=== PATIENT | female | born 1950 | race Caucasian/White ===

== ENCOUNTER 2019-11-06 21:18 | Emergency (ER) | payer MEDICARE, SELFPAY ==
[2019-11-06 21:20] VITALS: BP 203/86; PULSE 98; RESP 18; TEMP 36.9; O2SAT 95; BMI 35.4
--- NOTE | 2019-11-06 21:29 | ED_ITS ---
HPI - Extremity Problem General: Chief complaint: Extremity Injury, Lower Stated complaint: left foot injury Time Seen by Provider: 11/06/19 21:23 History of Present Illness: HPI Narrative: Patient states couple hours ago that that she woke on her porch and got a splinter left foot and she cannot remove the splinter. Complaint: other (On her left foot) Onset (ago): hour(s) Pain Consistency: constant Location: left Severity scale (1-10): 3 Quality: aching Associated symptoms: Deny chest pain, fever(s) or rash Review of Systems Const: Denies: fever, chills or body aches Eyes: Denies: change in vision or blurry vision ENMT: Denies: throat pain or nasal congestion Card: Denies: chest pain or shortness of breath on exertion Resp: Denies: shortness of breath, productive cough or non-productive cough GI: Denies: abdominal pain, nausea or vomiting Musc: Denies: extremity pain Skin/Breast: Reports: other (Splinter left foot); Denies: rash Neuro: Denies: headache Psych: Denies: anxiety or depression Andreas/Lymph: Denies: easy bruising PFS ED PFSH: Social History Smoking and tobacco status: never smoked Physical Exam Const: COMMON NORMALS: no apparent distress Skin: OTHER: Obvious splinter in the base left foot up near the toe Procedures Foreign Body Removal Time Out Performed: no Site: left and foot Description of foreign body: other (Splinter) Sedation/Analgesia: other (Use lidocaine 1% to the wound area remove this splinter intact) Technique: manual removal and removal with forceps Confirmed by:: direct visualization Complications: none Course Vital Signs: Vital signs: Vital Signs Temperature 98.4 F 11/06/19 21:20 Pulse Rate 98 11/06/19 21:20 Respiratory Rate 18 11/06/19 21:20 Blood Pressure 203/86 11/06/19 21:20 Pulse Oximetry 95 11/06/19 21:20 Discharge Plan Discharge Prescriptions: No Action Unable to Assess RF: 0 Coding Level of Care Code ED Director Of Field Coordination for [place] Fwd Exam Problem Focused
[2019-11-06 21:42] VITALS: PULSE 86; RESP 18; O2SAT 98
[2019-11-06] MEDS: lidocaine 1% INJ 20 mL INTRADERMA (21:45)
[2019-11-06] MEDS: tetanus-dipt-pertussis 0.5 mL SDV IM (21:46)
[2019-11-06] MEDS: cephALEXin 500 mg Capsule PO (21:55)
[2019-11-06 22:00] VITALS: BP 177/100; PULSE 81; RESP 18; O2SAT 97
== END 2019-11-06 22:00 | disposition home or self-care (01) ==
LOC: ER 22:05
PROVIDERS: Emergency Provider Nurse Practitioner Family; Family Provider Family Medicine
DX: S90.852A Superficial foreign body, left foot, initial encounter (principal); W45.8XXA Other foreign body or object entering through skin, initial encounter; Z23 Encounter for immunization
CPT/HCPCS: 12345; 90471; 90715; 99281; 99283; J2001

== ENCOUNTER → 2020-02-05 09:24 | Outpatient (BNVA) | payer MEDICARE, SELFPAY | PROVIDERS: Family Provider Family Medicine; PCP Family Medicine; Visit Provider Family Medicine | DX: I10 Essential (primary) hypertension (principal); R92.8 Other abnormal and inconclusive findings on diagnostic imaging of breast | CPT/HCPCS: 36415; 80053; 80061; 85025 ==

== ENCOUNTER 2020-04-16 14:37 | Emergency (ER) | payer MEDICARE, SELFPAY ==
[2020-04-16] VITALS (10 sets, daily range): BP systolic 150–180; BP diastolic 62–106; PULSE 78–96; RESP 16–18; TEMP 36.4; O2SAT 97–100; BMI 34.0
--- NOTE | 2020-04-16 15:07 | ED_ITS ---
Documented by User: Ji Machado DO 04/21/20 15:51 HPI - Abdominal Pain General: Chief Complaint: Abdominal Pain Stated Complaint: abd pain/thrw up Time Seen by Provider: 04/16/20 15:07 History of Present Illness: HPI narrative: 69-year-old female with complaint of abdominal pain that began around 11 AM this morning. She is not had any episodes like this previously.. Relates the pain is in the epigastric area radiating across the abdomen most prominent in the right upper quadrant she has had multiple episodes of bilious vomiting denies any hematochezia melena hematemesis coffee-ground emesis. Denies any dysuria urgency or frequency. She not had any cough or shortness of breath no diarrhea associated with this. She is taken various [id number] medicines for dyspepsia and reflux with no relief of the symptoms. She denies any fever she is not do anything that seems to exacerbate or relieve it. MD elicited complaint: abdominal pain Pertinent past history: none Onset (ago): hour(s) Location: Epigastric and RUQ Severity: severe Quality: cramping Radiation: LUQ Migration to: no migration Exacerbating factors: nothing Relieving factors: nothing Associated Symptoms: Reports GI cramping, dyspepsia, nausea, poor appetite and vomiting; Denies anorexia, belching, bloating, change in bowel habits, change in stool character, chills, coffee ground emesis, constipation, diarrhea, dysuria, excessive flatus, fever(s), heartburn, hematochezia, hematuria, hematemesis, fecal incontinence, loose stools, melena and syncope Review of Systems Const: Denies: fever(s) or chills ENMT: Denies: throat pain, ear or mastoid pain, nasal discharge or nasal congestion Card: Denies: syncope Resp: Denies: dyspnea, productive cough or non-productive cough GI: Reports: nausea, vomiting and GI cramping; Denies: hematemesis, coffee ground emesis, heartburn, diarrhea, constipation, bloating, belching, excessive flatus, fecal incontinence, change in bowel habits, change in stool character, hematochezia or melena : Denies: dysuria or hematuria Skin/Breast: Denies: rash or pruritus PFSH ED PFSH: Medical History (Updated 10/07/20 @ 20:22 by Kyra Kulkarni) Hypertension Surgical History (Updated 04/16/20 @ 15:14 by Ji Machado DO) History of left hip replacement Previous back surgery lumbar Social History Smoking and tobacco status: never smoked Alcohol intake: never Physical Exam Const: COMMON NORMALS: no acute distress GENERAL APPEARANCE: cooperative and comfortable ORIENTATION/CONSCIOUSNESS: Yes awake, Yes oriented to person, Yes oriented to place and Yes oriented to time HENMT: COMMON NORMALS: normocephalic, atraumatic and hearing grossly normal bilaterally HEAD & SCALP: normocephalic and atraumatic Neck/C-Spine: COMMON NORMALS: no JVD Resp: COMMON NORMALS: normal respiratory effort, No retractions, No use of accessory muscles and clear to auscultation bilaterally AUSCULTATION: clear to auscultation bilaterally Cardio: COMMON NORMALS: no JVD, regular rate, regular rhythm and No murmurs present (Cardio) RATE: regular rate RHYTHM: regular rhythm GI: AUSCULTATION: Yes normoactive bowel sounds PALPATION: Yes Tenderness to palpation present (GI) (Quizzically tender right upper quadrant and epigastric area with a positive Escobedo sign) and No Guarding due to palpation present (GI) Extremity: COMMON NORMALS: normal to inspection, capillary refill normal, no clubbing, cyanosis or edema, no calf tenderness and no pedal edema Neuro: SENSORIUM/ORIENTATION: Yes oriented to person, Yes oriented to place and Yes oriented to time Skin: COMMON NORMALS: no rashes or lesions noted GENERAL SKIN EXAM: no rashes or lesions noted Course Vital Signs: Vital signs: Vital Signs Temperature 98.4 F 04/17/20 05:55 Pulse Rate 88 04/17/20 05:55 Respiratory Rate 18 04/17/20 05:55 Blood Pressure 169/89 04/17/20 05:55 Pulse Oximetry 97 04/17/20 05:55 MDM - Abdominal Pain MDM Narrative: Medical decision making narrative: Care signed out to Dr. Chavez at change of shift see his note for definitive diagnosis and disposition. Lab Data: Labs: Lab Results 04/16/20 04/16/20 04/16/20 Range/Units 15:18 15:18 15:40 WBC 11.6 H (4.0-10.0) 10^3/ uL RBC 4.61 (4.1-5.3) 10^6/u L Hgb 13.2 (11.5-15.3) g/dL Hct 40.6 (37.0-47.0) % MCV 88.1 (81-99) fL MCH 28.6 (28.0-34.0) pg MCHC 32.5 (30.0-36.0) g/dL RDW 14.2 (12.1-15.1) % Plt Count 309 (130-400) 10^3/c mm MPV 9.3 (7.4-10.4) fL Neut % (Auto) 83.2 % Lymph % (Auto) 10.7 % [place] % (Auto) 5.1 % Eos % (Auto) 0.3 % Baso % (Auto) 0.4 % Neut # (Auto) 9.64 H (1.8-7.7) 10^3/u L Lymph # (Auto) 1.2 (0.8-4.8) 10^3/u L [place] # (Auto) 0.6 (0.2-0.9) 10^3/u L Eos # (Auto) 0.0 (0.0-0.8) 10^3/u L Baso # (Auto) 0.1 (0.0-0.1) 10^3/u L Nucleated RBC % (a uto) 0 % Nucleated RBCs # 0.0 /100WBC Sodium 138 (136-145) mmol/L Potassium 3.6 (3.5-5.1) mmol/L Chloride 102 (98-107) mmol/L Carbon Dioxide 23 (22-29) mmol/L Anion Gap 16.6 (5-19) BUN 23 (8-23) mg/dL Creatinine 1.0 H (0.5-0.9) mg/dL GFR Calculation 55.0 L (90-130) mL/min Glucose 134 H (65-115) mg/dL Calculated Osmolal ity 292 (285-295) mOsm/k g Lactate (0.5-2.2) mmol/L Calcium 9.7 (8.5-10.5) mg/dL Total Bilirubin 0.2 (0.15-1.2) mg/dL AST 26 (0-32) U/L ALT 44 H (0-33) U/L Alkaline Phosphata se 147 H (35-105) IU/L Total Protein 7.2 (6.6-8.7) g/dL Albumin 4.2 (3.5-5.2) g/dL Globulin 3.0 (1.3-4.6) g/dL Lipase 52 (13-60) U/L Urine Color Yellow (Yellow) Urine Appearance Hazy A (CLEAR) Urine pH 8 H (5-7) Ur Specific Gravit y 1.015 (1.005-1.030) Urine Protein Neg (Negative) Urine Glucose (UA) Norm (Normal) Urine Ketones Negative (Negative) Urine Blood Neg (Negative) Urine Nitrate Negative (Negative) Urine Bilirubin Neg (Negative) Prot Sulfosalicyli c Acd Negative (Negative) Urine Urobilinogen Norm (Negative) mg/dL Ur Leukocyte Selena ase Trace H (Negative) Urine RBC 0-4 H (0-2) /hpf Urine WBC 5-10 H (0-5) /hpf Ur Squamous Epith Cells 15-25 H (0-5) /hpf Amorphous Sediment 4+ /hpf Urine Bacteria 1+ H (NONE) /hpf 04/16/20 Range/Units 15:56 WBC (4.0-10.0) 10^3/ uL RBC (4.1-5.3) 10^6/u L Hgb (11.5-15.3) g/dL Hct (37.0-47.0) % MCV (81-99) fL MCH (28.0-34.0) pg MCHC (30.0-36.0) g/dL RDW (12.1-15.1) % Plt Count (130-400) 10^3/c mm MPV (7.4-10.4) fL Neut % (Auto) % Lymph % (Auto) % [place] % (Auto) % Eos % (Auto) % Baso % (Auto) % Neut # (Auto) (1.8-7.7) 10^3/u L Lymph # (Auto) (0.8-4.8) 10^3/u L [place] # (Auto) (0.2-0.9) 10^3/u L Eos # (Auto) (0.0-0.8) 10^3/u L Baso # (Auto) (0.0-0.1) 10^3/u L Nucleated RBC % (a uto) % Nucleated RBCs # /100WBC Sodium (136-145) mmol/L Potassium (3.5-5.1) mmol/L Chloride (98-107) mmol/L Carbon Dioxide (22-29) mmol/L Anion Gap (5-19) BUN (8-23) mg/dL Creatinine (0.5-0.9) mg/dL GFR Calculation (90-130) mL/min Glucose (65-115) mg/dL Calculated Osmolal ity (285-295) mOsm/k g Lactate 2.3 H (0.5-2.2) mmol/L Calcium (8.5-10.5) mg/dL Total Bilirubin (0.15-1.2) mg/dL AST (0-32) U/L ALT (0-33) U/L Alkaline Phosphata se (35-105) IU/L Total Protein (6.6-8.7) g/dL Albumin (3.5-5.2) g/dL Globulin (1.3-4.6) g/dL Lipase (13-60) U/L Urine Color (Yellow) Urine Appearance (CLEAR) Urine pH (5-7) Ur Specific Gravit y (1.005-1.030) Urine Protein (Negative) Urine Glucose (UA) (Normal) Urine Ketones (Negative) Urine Blood (Negative) Urine Nitrate (Negative) Urine Bilirubin (Negative) Prot Sulfosalicyli c Acd (Negative) Urine Urobilinogen (Negative) mg/dL Ur Leukocyte Selena ase (Negative) Urine RBC (0-2) /hpf Urine WBC (0-5) /hpf Ur Squamous Epith Cells (0-5) /hpf Amorphous Sediment /hpf Urine Bacteria (NONE) /hpf Discharge Plan Discharge Patient Disposition: Xfer Short-Term Hosp Clinical Impression: Common bile duct dilatation Abdominal pain Qualifiers: Abdominal location: upper abdomen, unspecified Qualified Code(s): R10.10 - Upper abdominal pain, unspecified Condition: Stable Referrals: J Carlos Velasquez DO [Primary Care Provider] - Patient Instructions: Abdominal Pain (ED) Discharge Date/Time: 04/17/20 05:56 Coding Level of Care Code ED Mar[facility] Polisher for Chg Fwd Exam Comprehensive Documented by User: Kyra Kulkarni 04/16/20 20:22 HPI - Abdominal Pain General: Chief Complaint: Abdominal Pain Stated Complaint: abd pain/thrw up Time Seen by Provider: 04/16/20 15:07 PFSH ED PFSH: Medical History (Updated 04/16/20 @ 20:22 by Kyra Kulkarni) Hypertension Surgical History (Updated 04/16/20 @ 15:14 by Ji Machado DO) History of left hip replacement Previous back surgery lumbar Social History Smoking and tobacco status: never smoked Alcohol intake: never Course Vital Signs: Vital signs: Vital Signs Temperature 98.4 F 04/17/20 05:55 Pulse Rate 88 04/17/20 05:55 Respiratory Rate 18 04/17/20 05:55 Blood Pressure 169/89 04/17/20 05:55 Pulse Oximetry 97 04/17/20 05:55 MDM - Abdominal Pain MDM Narrative: Medical decision making narrative: 820 -Case have been reviewed with Dr. Townsend feels the patient will need a ERCP with intraoperative ultrasound and possible stent and biopsy. Patient had requested to go to [facility]. I reviewed the case there with Dr. Menjivar and he will accept the patient in transfer. Lab Data: Attestation: I reviewed the patient's lab results. Labs: Lab Results 04/16/20 04/16/20 04/16/20 Range/Units 15:18 15:18 15:40 WBC 11.6 H (4.0-10.0) 10^3/ uL RBC 4.61 (4.1-5.3) 10^6/u L Hgb 13.2 (11.5-15.3) g/dL Hct 40.6 (37.0-47.0) % MCV 88.1 (81-99) fL MCH 28.6 (28.0-34.0) pg MCHC 32.5 (30.0-36.0) g/dL RDW 14.2 (12.1-15.1) % Plt Count 309 (130-400) 10^3/c mm MPV 9.3 (7.4-10.4) fL Neut % (Auto) 83.2 % Lymph % (Auto) 10.7 % [place] % (Auto) 5.1 % Eos % (Auto) 0.3 % Baso % (Auto) 0.4 % Neut # (Auto) 9.64 H (1.8-7.7) 10^3/u L Lymph # (Auto) 1.2 (0.8-4.8) 10^3/u L [place] # (Auto) 0.6 (0.2-0.9) 10^3/u L Eos # (Auto) 0.0 (0.0-0.8) 10^3/u L Baso # (Auto) 0.1 (0.0-0.1) 10^3/u L Nucleated RBC % (a uto) 0 % Nucleated RBCs # 0.0 /100WBC Sodium 138 (136-145) mmol/L Potassium 3.6 (3.5-5.1) mmol/L Chloride 102 (98-107) mmol/L Carbon Dioxide 23 (22-29) mmol/L Anion Gap 16.6 (5-19) BUN 23 (8-23) mg/dL Creatinine 1.0 H (0.5-0.9) mg/dL GFR Calculation 55.0 L (90-130) mL/min Glucose 134 H (65-115) mg/dL Calculated Osmolal ity 292 (285-295) mOsm/k g Lactate (0.5-2.2) mmol/L Calcium 9.7 (8.5-10.5) mg/dL Total Bilirubin 0.2 (0.15-1.2) mg/dL AST 26 (0-32) U/L ALT 44 H (0-33) U/L Alkaline Phosphata se 147 H (35-105) IU/L Total Protein 7.2 (6.6-8.7) g/dL Albumin 4.2 (3.5-5.2) g/dL Globulin 3.0 (1.3-4.6) g/dL Lipase 52 (13-60) U/L Urine Color Yellow (Yellow) Urine Appearance Hazy A (CLEAR) Urine pH 8 H (5-7) Ur Specific Gravit y 1.015 (1.005-1.030) Urine Protein Neg (Negative) Urine Glucose (UA) Norm (Normal) Urine Ketones Negative (Negative) Urine Blood Neg (Negative) Urine Nitrate Negative (Negative) Urine Bilirubin Neg (Negative) Prot Sulfosalicyli c Acd Negative (Negative) Urine Urobilinogen Norm (Negative) mg/dL Ur Leukocyte Selena ase Trace H (Negative) Urine RBC 0-4 H (0-2) /hpf Urine WBC 5-10 H (0-5) /hpf Ur Squamous Epith Cells 15-25 H (0-5) /hpf Amorphous Sediment 4+ /hpf Urine Bacteria 1+ H (NONE) /hpf 04/16/20 Range/Units 15:56 WBC (4.0-10.0) 10^3/ uL RBC (4.1-5.3) 10^6/u L Hgb (11.5-15.3) g/dL Hct (37.0-47.0) % MCV (81-99) fL MCH (28.0-34.0) pg MCHC (30.0-36.0) g/dL RDW (12.1-15.1) % Plt Count (130-400) 10^3/c mm MPV (7.4-10.4) fL Neut % (Auto) % Lymph % (Auto) % [place] % (Auto) % Eos % (Auto) % Baso % (Auto) % Neut # (Auto) (1.8-7.7) 10^3/u L Lymph # (Auto) (0.8-4.8) 10^3/u L [place] # (Auto) (0.2-0.9) 10^3/u L Eos # (Auto) (0.0-0.8) 10^3/u L Baso # (Auto) (0.0-0.1) 10^3/u L Nucleated RBC % (a uto) % Nucleated RBCs # /100WBC Sodium (136-145) mmol/L Potassium (3.5-5.1) mmol/L Chloride (98-107) mmol/L Carbon Dioxide (22-29) mmol/L Anion Gap (5-19) BUN (8-23) mg/dL Creatinine (0.5-0.9) mg/dL GFR Calculation (90-130) mL/min Glucose (65-115) mg/dL Calculated Osmolal ity (285-295) mOsm/k g Lactate 2.3 H (0.5-2.2) mmol/L Calcium (8.5-10.5) mg/dL Total Bilirubin (0.15-1.2) mg/dL AST (0-32) U/L ALT (0-33) U/L Alkaline Phosphata se (35-105) IU/L Total Protein (6.6-8.7) g/dL Albumin (3.5-5.2) g/dL Globulin (1.3-4.6) g/dL Lipase (13-60) U/L Urine Color (Yellow) Urine Appearance (CLEAR) Urine pH (5-7) Ur Specific Gravit y (1.005-1.030) Urine Protein (Negative) Urine Glucose (UA) (Normal) Urine Ketones (Negative) Urine Blood (Negative) Urine Nitrate (Negative) Urine Bilirubin (Negative) Prot Sulfosalicyli c Acd (Negative) Urine Urobilinogen (Negative) mg/dL Ur Leukocyte Selena ase (Negative) Urine RBC (0-2) /hpf Urine WBC (0-5) /hpf Ur Squamous Epith Cells (0-5) /hpf Amorphous Sediment /hpf Urine Bacteria (NONE) /hpf Imaging Data ^: US: Radiologist's impression: [address] [address] Ultrasound Report Signed Patient: Shireen Armstrong Unit #: [id number] : 1950 Age/Sex: 69 / F ADM Date: 04/16/20 Loc: ER Room/Bed: Attending Dr: Ordering Provider/Ordering MD: Ji Machado DO Date of Service: 04/16/20 Procedure(s): US gall bladder 22011 Accession Number(s): [id number] Report Number: [id number] WS: [id number] ABDOMINAL ULTRASOUND LIMITED REASON FOR VISIT: RUQ abd pain TECHNIQUE: Grayscale and Doppler ultrasound examination of the abdomen. FINDINGS: Pancreas: Limited visualization due to bowel gas. Visualized portions of the pancreas were normal. Abdominal aorta and IVC: Limited visualization due to bowel gas. Visualized portions were normal. Liver: Liver measures 18.5 cm in length. The liver was enlarged and hyperechoic. Gallbladder: Gallbladder wall thickness measures 0.3 mm. No pericholecystic inflammatory change identified. Large shadowing calculus in the neck of the gallbladder. Gallbladder was moderately distended. Common bile duct was significantly distended at 1.4 cm in diameter. Right kidney: Right kidney measures 11.7 cm x 4.5 cm x 5.2 cm. Right kidney cortex measures 1.1 cm. No mass, calculus, or hydronephrosis. US/US gall bladder [id number] IMPRESSION: Enlarged fatty infiltrated liver. Cholelithiasis with a moderately distended gallbladder. Significant dilatation of the common bile duct which would indicate further workup for common bile duct obstruction. Dictated By: Lucas Montano Jr, MD Signed By: Lucas Montano Jr, MD Signed Date/Time: 04/16/201651 DD/ 164 MRCP: Radiologist's impression: [address] [address] Magnetic Resonance Report Signed with Addenda Patient: Shireen Armstrong Unit #: [id number] : 1950 Age/Sex: 69 / F ADM Date: 04/16/20 Loc: ER Room/Bed: Attending Dr: Ordering Provider/Ordering MD: Ji Machado DO Date of Service: 04/16/20 Procedure(s): MR MRCP 95514 Accession Number(s): [id number] Report Number: [id number] ADDENDUM MR/MR MRCP [id number] Urgent results were discussed with Dr. Kulkarni on 04/16/2020 at 7:26 PM CDT. Addendum Dictated By: Michelle Enamorado MD Addendum Signed By: Michelle Enamorado MD Signed Date/Time: 04/16/201927 Addendum Cosigned By: PROCEDURE INFORMATION: Exam: MR Abdomen Without Contrast Exam date and time: 04/16/2020 4:21 PM Age: 69 years old Clinical indication: Abdominal pain; Tenderness; Right lower quadrant (rlq); Additional info: Dilated cbd TECHNIQUE: Imaging protocol: MR of the abdomen without contrast. COMPARISON: US gall bladder [id number] 04/16/2020 4:05 PM FINDINGS: Lungs: Visualized lungs are clear. Pleural space: No pleural effusion. Heart: Mild enlargement of the heart. Liver: Moderate loss of signal intensity on the T1 out of phase sequence in the liver, consistent with moderate fatty infiltration. The liver is moderately enlarged measuring 20.9 cm in length (series 7, image 13). Gallbladder and bile ducts: Redemonstration of a large stone in the neck of the gallbladder. This measures 2.8 x 1.6 cm (series 6, image 17). Findings are stable compared with the previous ultrasound. No gallbladder wall thickening. No pericholecystic fluid. Mild intrahepatic and extrahepatic biliary ductal dilatation. The right hepatic duct measures 6.5 mm (series 4, image 17). The left hepatic duct measures 8.8 mm (series 4, image 21). The cystic duct is not definitely visualized. The common bile duct measures 1.3 cm (series 4, image 17). Focal narrowing of the common bile duct just above the ampulla. No retained biliary stones. Pancreas: The pancreas is unremarkable. No pancreatic ductal dilatation. Spleen: The spleen is unremarkable. Adrenals: The right and left adrenal glands are unremarkable. Kidneys and ureters: The right and left kidneys are unremarkable. Stomach and bowel: No acute abnormality in the visualized bowel. Small duodenal diverticulum off the 2nd portion of the duodenum. Intraperitoneal space: No ascites. Arteries: No evidence for aortic aneurysm. Bones/joints: Multilevel degenerative changes of varying severity in the visualized spine. Mild spinal canal stenosis at L2-L3. Soft tissues: Unremarkable. MR/MR MRCP [id number] IMPRESSION: 1. Mild intrahepatic and extrahepatic biliary ductal dilatation with focal caliber change of the common bile duct just above the ampulla. No retained biliary stones. Findings could be due to a biliary stricture versus an occult mass. Recommend clinical correlation. Endoscopic ultrasound may be beneficial for further evaluation. 2. Stable appearance of a large gallstone in the neck of the gallbladder. 3. Moderate hepatomegaly and moderate fatty infiltration of the liver. 4. Small duodenal diverticulum off the 2nd portion of the duodenum. 5. Incidental/nonacute findings are listed in the report. Dictated By: Michelle Enamorado MD Signed By: Michelle Enamorado MD Signed Date/Time: 04/16/201918 DD/ 17 Discharge Plan Discharge Patient Disposition: Xfer Short-Term Hosp Clinical Impression: Common bile duct dilatation Abdominal pain Qualifiers: Abdominal location: upper abdomen, unspecified Qualified Code(s): R10.10 - Upper abdominal pain, unspecified Condition: Stable Referrals: J Carlos Velasquez DO [Primary Care Provider] - Patient Instructions: Abdominal Pain (ED) Discharge Date/Time: 04/17/20 05:56 Coding Level of Care Code ED Mar[facility] Polisher for Chg Fwd Exam Comprehensive
--- NOTE | 2020-04-16 15:15 | US_ITS ---
WS: [id number] ABDOMINAL ULTRASOUND LIMITED REASON FOR VISIT: RUQ abd pain TECHNIQUE: Grayscale and Doppler ultrasound examination of the abdomen. FINDINGS: Pancreas: Limited visualization due to bowel gas. Visualized portions of the pancreas were normal. Abdominal aorta and IVC: Limited visualization due to bowel gas. Visualized portions were normal. Liver: Liver measures 18.5 cm in length. The liver was enlarged and hyperechoic. Gallbladder: Gallbladder wall thickness measures 0.3 mm. No pericholecystic inflammatory change ident ified. Large shadowing calculus in the neck of the gallbladder. Gallbladder was moderately distended. Common bile duct was significantly distended at 1.4 cm in diameter. Right kidney: Right kidney measures 11.7 cm x 4.5 cm x 5.2 cm. Right kidney cortex measures 1.1 cm. N o mass, calculus, or hydronephrosis. US/US gall bladder [id number] IMPRESSION: Enlarged fatty infiltrated liver. Cholelithiasis with a moderately distended gallbladder. Significant dilatation of the common bile duct which would indicate further wor kup for common bile duct obstruction.
[2020-04-16 15:25] LABS: Basophils # 0.1 10^3/uL (0.0-0.1); Basophils % 0.4 %; Eosinophils % 0.3 %; Hematocrit 40.6 % (37.0-47.0); Hemoglobin 13.2 g/dL (11.5-15.3); Lymphocytes # 1.2 10^3/uL (0.8-4.8); Lymphocytes % 10.7 %; Mean Corpuscular HGB Conc 32.5 g/dL (30.0-36.0); Mean Corpuscular Hemoglobin 28.6 pg (28.0-34.0); Mean Corpuscular Volume 88.1 fL (81-99); Mean Platelet Volume 9.3 fL (7.4-10.4); Monocytes # 0.6 10^3/uL (0.2-0.9); Monocytes % 5.1 %; Neutrophils # 9.64 10^3/uL (1.8-7.7); Neutrophils % 83.2 %; Nucleated Red Blood Cells % 0 %; Platelet Count 309 10^3/cmm (130-400); Red Blood Count 4.61 10^6/uL (4.1-5.3); Red Cell Distribution Width 14.2 % (12.1-15.1); White Blood Count 11.6 10^3/uL (4.0-10.0)
[2020-04-16 15:47] LABS: Alanine Aminotransferase 44 U/L (0-33); Albumin Level 4.2 g/dL (3.5-5.2); Alkaline Phosphatase 147 IU/L (35-105); Anion Gap 16.6 (5-19); Aspartate Amino Transferase 26 U/L (0-32); Blood Urea Nitrogen 23 mg/dL (8-23); Calcium 9.7 mg/dL (8.5-10.5); Carbon Dioxide 23 mmol/L (22-29); Chloride 102 mmol/L (98-107); Glucose 134 mg/dL (65-115); Lipase 52 U/L (13-60); Osmolality Calculated 292 mOsm/kg (285-295); Potassium 3.6 mmol/L (3.5-5.1); Sodium 138 mmol/L (136-145); Total Bilirubin 0.2 mg/dL (0.15-1.2); Total Protein 7.2 g/dL (6.6-8.7)
[2020-04-16] MEDS: ondansetron 2 mg/ML SDV 2 mL 4 MG IVP ×2 (16:18→22:07)
[2020-04-16] MEDS: morphine 4 mg/mL SDV 1 mL IVP (16:18)
--- NOTE | 2020-04-16 16:19 | MRR_ITS ---
PROCEDURE INFORMATION: Exam: MR Abdomen Without Contrast Exam date and time: 04/16/2020 4:21 PM Age: 69 years old Clinical indication: Abdominal pain; Tenderness; Right lower quadrant (rlq); Additional info: Dilated cbd TECHNIQUE: Imaging protocol: MR of the abdomen without contrast. COMPARISON: US gall bladder [id number] 04/16/2020 4:05 PM FINDINGS: Lungs: Visualized lungs are clear. Pleural space: No pleural effusion. Heart: Mild enlargement of the heart. Liver: Moderate loss of signal intensity on the T1 out of phase sequence in the liver, consistent with moderate fatty infiltration. The liver is moderately enlarged measuring 20.9 cm in length (series 7, image 13). Gallbladder and bile ducts: Redemonstration of a large stone in the neck of the gallbladder. This measures 2.8 x 1.6 cm (series 6, image 17). Findings are stable compared with the previous ultrasound. No gallbladder wall thickening. No pericholecystic fluid. Mild intrahepatic and extrahepatic biliary ductal dilatation. The right hepatic duct measures 6.5 mm (series 4, image 17). The left hepatic duct measures 8.8 mm (series 4, image 21). The cystic duct is not definitely visualized. The common bile duct measures 1.3 cm (series 4, image 17). Focal narrowing of the common bile duct just above the ampulla. No retained biliary stones. Pancreas: The pancreas is unremarkable. No pancreatic ductal dilatation. Spleen: The spleen is unremarkable. Adrenals: The right and left adrenal glands are unremarkable. Kidneys and ureters: The right and left kidneys are unremarkable. Stomach and bowel: No acute abnormality in the visualized bowel. Small duodenal diverticulum off the 2nd portion of the duodenum. Intraperitoneal space: No ascites. Arteries: No evidence for aortic aneurysm. Bones/joints: Multilevel degenerative changes of varying severity in the visualized spine. Mild spinal canal stenosis at L2-L3. Soft tissues: Unremarkable. MR/MR MRCP [id number] IMPRESSION: 1. Mild intrahepatic and extrahepatic biliary ductal dilatation with focal caliber change of the common bile duct just above the ampulla. No retained biliary stones. Findings could be due to a biliary stricture versus an occult mass. Recommend clinical correlation. Endoscopic ultrasound may be beneficial for further evaluation. 2. Stable appearance of a large gallstone in the neck of the gallbladder. 3. Moderate hepatomegaly and moderate fatty infiltration of the liver. 4. Small duodenal diverticulum off the 2nd portion of the duodenum. 5. Incidental/nonacute findings are listed in the report.
[2020-04-16 16:21] LABS: Lactate (Lactic Acid level) 2.3 mmol/L (0.5-2.2)
[2020-04-16 16:45] LABS: Urine Appearance Hazy (CLEAR); Urine Color Yellow (Yellow); pH Urine 8 (5-7)
[2020-04-16 16:46] LABS: Add Urine Microscopic? YES; Bilirubin Urine Neg (Negative); Blood Urine Neg (Negative); Glucose Urine UA Norm (Normal); Ketones Urine Negative (Negative); Leukocyte Esterase Urine Trace (Negative); Nitrate Urine Negative (Negative); Protein Urine Neg (Negative); Specific Gravity, Urine 1.015 (1.005-1.030); Sulfosalicylic Acid Urine Negative (Negative); Urobilinogen Urine Norm (Negative)
[2020-04-16 16:48] LABS: Add Urine Culture? No; Amorphous Sediment Urine 4+ /hpf; Bacteria Urine 1+ /hpf; RBC Urine 0-4 /hpf (0-2); Squamous Epithelial Cell Urine 15-25 /hpf (0-5)
--- NOTE | 2020-04-16 17:41 | ECG_ITS ---
[facility] Test Date: 2020-04-16 Pat Name: Shireen Armstrong Department: Room: Gender: Female Enrollment Services Dean: : 1950 Requested By: Ji Garay Order Number: [id number] Romi MD: Cheri Ordaz M.D. Measurements Intervals [place] Rate: 77 P: 62 DE: 155 QRS: 7 QRSD: 92 T: 102 QT: 379 QTc: 429 Interpretive Statements SINUS RHYTHM NONSPECIFIC T-WAVE ABNORMALITY Compared to ECG 03/03/2018 10:20:51 No significant changes Electronically Signed On 04-17-2020 21:41:27 CDT by Cheri Ordaz M.D. [id number]
[2020-04-16] MEDS: piperacillin-tazobactam 3.375 GM in sodium chloride 0.9% (plus) 50 ML IV (17:56)
[2020-04-16] MEDS: HYDROmorphone 1 mg/mL INJ 1 mL IVP ×2 (17:56→22:07)
[2020-04-16] MEDS: metoclopramide 5 mg/mL SDV 2 mL 10 MG IVP (17:56)
--- NOTE | 2020-04-16 18:04 | PC.NURSE ---
pt to MRI/[facility] by ambulance with EMS crew
--- NOTE | 2020-04-16 18:52 | PC.NURSE ---
pt back from MRI
--- NOTE | 2020-04-16 21:42 | PC.NURSE ---
Pt report called to Lemuel Wheeler RN.
--- NOTE | 2020-04-16 22:28 | PC.SOCIAL ---
Patient visited in ED. She lives with her spouse. She is usually very healthy, denies any prior services or DME. She cares for her 91 & 95 year old parents. Her sister will be helping them while she is in the hospital. Patient denies any advanced directives. She uses [facility]. She reports she is being transferred to [place] and her daughter will pick her up when she is discharged from there. Her spouse has diabetes and she doesn't want to risk him being exposed to any COVID.
[2020-04-17] VITALS (9 sets, daily range): BP systolic 151–181; BP diastolic 59–91; PULSE 75–92; RESP 16–18; TEMP 36.9; O2SAT 92–98
[2020-04-17] MEDS: metoclopramide 5 mg/mL SDV 2 mL 10 MG IV (03:35)
[2020-04-17] MEDS: fentaNYL 50 mcg/mL INJ 2mL IVP (03:35)
--- NOTE | 2020-04-17 04:34 | PC.NURSE ---
Pt daughter called and was upset due to pt extended stay. This nurse explained the delay due to transportation. Pt family stated they were going to come and get the pt because they could have already been at the hospital. Pt family informed that the pt is a direct admit and that the ER physician is uncomfortable sending the pt via POV due to the amount of narcotics the pt has received in the ER. Pt daughter hung up the phone.
--- NOTE | 2020-04-17 05:00 | PC.NURSE ---
Pt came out of her room stating her family was coming to pick her up because she has been waiting since 1200 yesterday. PT informed that the MD is uncomfortable with her going POV, so she would have to sign out AMA. Pt states she wants to be taken by [facility]. Pt informed on the delay for ambulance. Pt returned to room.
== END 2020-04-17 05:56 | disposition short-term general hospital (02) ==
PROVIDERS: Emergency Medicine; Family Medicine; Emergency Provider Emergency Medicine; PCP Family Medicine
DX: R10.10 Upper abdominal pain, unspecified (principal); K83.8 Other specified diseases of biliary tract; I10 Essential (primary) hypertension
CPT/HCPCS: 12345; 36415; 74181; 76705; 80053; 81001; 83605; 83690; 85025; 93005; 96365; 96375; 96376; 99283; 99285; J1170; J2270; J2405; J2543; J2765; J3010; J7030

== ENCOUNTER → 2020-05-06 09:00 | Outpatient (BNVA) | payer MEDICARE, SELFPAY | PROVIDERS: PCP Family Medicine; Visit Provider Family Medicine | DX: I10 Essential (primary) hypertension (principal); R92.8 Other abnormal and inconclusive findings on diagnostic imaging of breast | CPT/HCPCS: 80061 ==

== ENCOUNTER → 2020-06-13 09:55 | Outpatient (BNVA) | payer MEDICARE, SELFPAY | PROVIDERS: PCP Family Medicine; Visit Provider Surgery | DX: Z20.828 Contact with and (suspected) exposure to other viral communicable diseases (principal) | CPT/HCPCS: 87635 ==

== ENCOUNTER 2020-06-27 08:37 | Outpatient (CLI) | payer MEDICARE, SELFPAY ==
--- NOTE | 2020-06-27 08:44 | US_ITS ---
WS: [id number] Right breast ultrasound, 06/27/2020 Clinical Data: HX OF ABNORMAL MAMMOGRAM/RT OVOID MASS 1000 Comparison: Right breast ultrasound, 01/26/2019. Findings: At the 10:00 position in the right breast 5 cm from the nipple there is a density measuring 0.40 x 0. 85 x 0.95 cm. The borders are well defined and there are echoes within. There is been no change from the prior study. This most likely represents a benign lesion and may be a lymph node. US/US breast RT limited* [id number] Impression: 1. No change in small lesion in the upper outer quadrant of the right breast wh ich may represent a lymph node. 2. Recommend annual screening mammograms. BIRADS: 2-Benign FOLLOW UP: 1 Year Follow-up
--- NOTE | 2020-06-27 09:00 | MM_ITS ---
WS: [id number] Bilateral diagnostic digital mammogram, 06/27/2020 Clinical Data: HX OF ABNORMAL MAMMOGRAM/RT OVOID MASS 1000 Comparison: 01/26/2019, 06/30/2018, 12/29/2017, 07/22/2017, 01/14/2017, 12/24/2016. Findings: The density in the upper outer quadrant right breast remains unchanged. It measures 1.1 cm with a wel l-defined border and no spiculations. Both breasts show fat replacement. The left breast shows promin ent ductal calcifications. MM/[place] [id number] Impression: 1. Small density in upper outer quadrant right breast unchanged. 2. Recommend right breast ultrasound. BIRADS: 2-Benign FOLLOW UP: See Report The CAD wash test checker was used.
== END 2020-06-27 08:38 | disposition home or self-care (01) ==
LOC: RADSHAW 08:40
PROVIDERS: PCP Family Medicine; Visit Provider Family Medicine
DX: R92.8 Other abnormal and inconclusive findings on diagnostic imaging of breast (principal); N63.11 Unspecified lump in the right breast, upper outer quadrant
CPT/HCPCS: 76642; 77066

== ENCOUNTER → 2020-12-10 12:59 | Outpatient (BNVA) | payer MEDICARE, SELFPAY | PROVIDERS: PCP Family Medicine; Visit Provider Family Medicine | DX: R10.9 Unspecified abdominal pain (principal) | CPT/HCPCS: 81000; 85025 ==

== ENCOUNTER → 2021-05-25 09:55 | Outpatient (BNVA) | payer MEDICARE, SELFPAY | PROVIDERS: PCP Family Medicine; Visit Provider Family Medicine | DX: I10 Essential (primary) hypertension (principal); E78.5 Hyperlipidemia, unspecified | CPT/HCPCS: 80053; 80061; 85025 ==

== ENCOUNTER → 2022-06-08 09:07 | Outpatient (BNVA) | payer MEDICARE, SELFPAY | PROVIDERS: PCP Family Medicine; Visit Provider Nurse Practitioner Family | DX: I10 Essential (primary) hypertension (principal) | CPT/HCPCS: 80053; 80061; 85025 ==

== ENCOUNTER → 2022-09-27 09:06 | Outpatient (BNVA) | payer MEDICARE, SELFPAY | PROVIDERS: PCP Family Medicine; Visit Provider Family Medicine | DX: R74.01 Elevation of levels of liver transaminase levels (principal); K76.0 Fatty (change of) liver, not elsewhere classified | CPT/HCPCS: 80053; 80061 ==

== ENCOUNTER → 2023-04-11 08:49 | Outpatient (BNVA) | payer MEDICARE, SELFPAY | PROVIDERS: PCP Family Medicine; Visit Provider Family Medicine | DX: R74.01 Elevation of levels of liver transaminase levels (principal); K76.0 Fatty (change of) liver, not elsewhere classified | CPT/HCPCS: 80053; 80061 ==

== ENCOUNTER → 2023-08-15 10:08 | Outpatient (BNVA) | payer MEDICARE, SELFPAY | PROVIDERS: PCP Family Medicine; Visit Provider Nurse Practitioner Family | DX: R30.0 Dysuria (principal) | CPT/HCPCS: 81003 ==

== ENCOUNTER → 2023-10-17 08:57 | Outpatient (BNVA) | payer MEDICARE, SELFPAY | PROVIDERS: PCP Family Medicine; Visit Provider Family Medicine | DX: K76.0 Fatty (change of) liver, not elsewhere classified (principal) | CPT/HCPCS: 80053 ==

== ENCOUNTER → 2024-04-16 09:00 | Outpatient (BNVA) | payer MEDICARE, SELFPAY | PROVIDERS: PCP Family Medicine; Visit Provider Family Medicine | DX: R74.01 Elevation of levels of liver transaminase levels (principal); K76.0 Fatty (change of) liver, not elsewhere classified | CPT/HCPCS: 80053 ==

== ENCOUNTER → 2024-05-02 13:00 | Outpatient (BNVA) | payer MEDICARE, SELFPAY | PROVIDERS: PCP Family Medicine; Visit Provider Nurse Practitioner Family | DX: R74.8 Abnormal levels of other serum enzymes (principal) | CPT/HCPCS: 82977; 85025; 86705; 86706; 86709; 86803; 87340 ==

== ENCOUNTER 2024-11-16 09:39 | Outpatient (CLI) | payer MEDICARE, SELFPAY ==
--- NOTE | 2024-11-16 14:20 | MM_ITS ---
WS: [id number] BILATERAL SCREENING DIGITAL TOMOSYNTHESIS MAMMOGRAM WITH CAD HISTORY: Z12.31 - Encounter for screening mammogram for malignant ... COMPARISON: 06/27/2020, 01/26/2019 Bilateral CC and MLO views with tomosynthesis and synthetic mammography submitted. Computer aided detection analyzed. Breast composition: The breasts are almost entirely fatty. No suspicious masses, microcalcifications or architectural distortion. Bilateral scattered asymmetries and calcifications. There is a new asymmetry in the LEFT breast near 3-4 o'clock which is along the skin surface. This may be a skin lesion. MM/MM scr tomosynthesis [id number] IMPRESSION: BI-RADS: 2 - Benign. FOLLOW UP: 1 Year Follow-up
== END 2024-11-16 09:40 | disposition home or self-care (01) ==
LOC: RAD 09:40
PROVIDERS: PCP Family Medicine; Visit Provider Family Medicine
DX: Z12.31 Encounter for screening mammogram for malignant neoplasm of breast (principal); R92.313 Mammographic fatty tissue density, bilateral breasts; N64.89 Other specified disorders of breast; R92.1 Mammographic calcification found on diagnostic imaging of breast; N63.23 Unspecified lump in the left breast, lower outer quadrant
CPT/HCPCS: 77063; 77067

== ENCOUNTER → 2024-12-25 08:15 | Outpatient (BNVA) | payer MEDICARE, SELFPAY | PROVIDERS: PCP Family Medicine; Visit Provider Family Medicine | DX: R79.89 Other specified abnormal findings of blood chemistry (principal); I10 Essential (primary) hypertension; R74.8 Abnormal levels of other serum enzymes; K76.0 Fatty (change of) liver, not elsewhere classified; Z12.11 Encounter for screening for malignant neoplasm of colon | CPT/HCPCS: 80053; 80061; 82607; 83036; 84443; 85027 ==

== ENCOUNTER → 2025-04-01 08:39 | Outpatient (BNVA) | payer MEDICARE, SELFPAY | PROVIDERS: PCP Family Medicine; Visit Provider Family Medicine | DX: I10 Essential (primary) hypertension (principal); E11.9 Type 2 diabetes mellitus without complications; R74.8 Abnormal levels of other serum enzymes; R79.89 Other specified abnormal findings of blood chemistry | CPT/HCPCS: 80053; 82043; 82607; 83036 ==

== ENCOUNTER 2025-04-24 08:53 | Outpatient (CLI) | payer MEDICARE, SELFPAY ==
--- NOTE | 2025-04-24 09:15 | US_ITS ---
WS: [id number] RIGHT UPPER QUADRANT ULTRASOUND HISTORY: K76.0 - Fatty (change of) liver, not elsewhere classified COMPARISON: 04/16/2020 Liver: 20.4 cm in length. Moderately enlarged liver with increased echogenicity throughout and coarse echotexture. The deep portions of the liver are not well visualized due to attenuation. Portal Vein: Normal hepatopetal flow with monophasic waveform. Gallbladder: Prior cholecystectomy. CBD: 0.5 cm Pancreas: Normal size and echogenicity. Right kidney: 11.7 cm in length. Normal size and echogenicity. No hydronephrosis or mass. Aorta and IVC: Unremarkable abdominal aorta and IVC. No ascites. US/US liver [id number] IMPRESSION: 1. Moderate hepatomegaly with hepatic steatosis. 2. Prior cholecystectomy. 3. No intrahepatic duct dilatation.
== END 2025-04-24 08:54 | disposition home or self-care (01) ==
LOC: RAD 08:57
PROVIDERS: PCP Family Medicine; Visit Provider Family Medicine
DX: K76.0 Fatty (change of) liver, not elsewhere classified (principal); R74.8 Abnormal levels of other serum enzymes; Z90.49 Acquired absence of other specified parts of digestive tract
CPT/HCPCS: 76705